=== PATIENT | female | born 1955 | race Caucasian/White ===

== ENCOUNTER 2021-01-19 16:05 | Emergency (ER) | payer MEDICARE, OTHER ==
[2021-01-19 17:20] LABS: BASOPHIL 0.4 % (0-2); EOSINOPHIL 0.6 % (0-7); HCT 38.6 % (37.0-47.0); LYMPHOCYTE 3.9 % (15-48); MCH 31.5 pg (25.0-31.0); MCHC 36.3 g/dL (32.0-36.0); MCV 86.7 fL (78.0-100.0); MONOCYTE 9.8 % (0-12); MPV 9.4 fL (6.0-9.5); NEUTROPHIL 84.8 % (41-80); NRBC 0; PLT 170 K/uL (150-400); RBC 4.45 M/uL (4.20-5.40); RDW 13.9 % (11.5-14.0)
[2021-01-19 17:27] LABS: BUN/CREAT RATIO (CALC) 22.9 RATIO; CREATININE 0.96 mg/dL (0.51-0.95)
[2021-01-19 18:56] LABS: BILIRUBIN NEGATIVE (NEGATIVE); BLOOD 2+ Ery/uL (NEGATIVE); CLARITY HAZY (CLEAR); COLOR YELLOW (YELLOW); GLUCOSE (U) 3+ mg/dL (NORMAL); LEUKOCYTES NEGATIVE Leu/uL (NEGATIVE); NITRITE NEGATIVE (NEGATIVE); PROTEIN 3+ mg/dL (NEGATIVE); UROBILINOGEN 0.2 mg/dL (0.2-1.0); pH 7.5 (5.0-9.0)
[2021-01-19 18:59] LABS: BACTERIA TRACE; TRANSITIONAL EPITHELIAL CELLS RARE
== END 2021-01-19 20:10 | disposition home or self-care (01) ==
LOC: FER 16:05
PROVIDERS: Nurse Practitioner Family
DX: E11.65 Type 2 diabetes mellitus with hyperglycemia (principal); E11.22 Type 2 diabetes mellitus with diabetic chronic kidney disease; I12.9 Hypertensive chronic kidney disease with stage 1 through stage 4 chronic kidney disease, or unspecified chronic kidney disease; N18.9 Chronic kidney disease, unspecified; J45.909 Unspecified asthma, uncomplicated; Z88.0 Allergy status to penicillin; Z88.2 Allergy status to sulfonamides; Z88.8 Allergy status to other drugs, medicaments and biological substances
CPT/HCPCS: 36415; 36600; 80048; 81001; 82009; 82803; 85025; J7030